=== PATIENT | male | born 1950 | race African-American/Black ===

== ENCOUNTER 2023-04-21 14:48 | Inpatient (IN) | payer OTHER ==
[~2023-04-21 14:48] MED LIST: Iopamidol-370 76% 500 ML MDV (1 ML CHARGE) ONE
[2023-04-21 15:51] LABS: Hemoglobin 10.2 g/dL (12.0-16.0); Mean Corpuscular Hemoglobin 28.9 pg (27.0-31.0); Mean Corpuscular Volume 87.5 fl (78.0-98.0); Mean Platelet Volume 12.8 fL (7.4-10.4); RBC Distribution Width 21.2 % (11.5-14.5); Red Blood Cell (RBC) Count 3.53 mill/uL (4.20-5.40); White Blood Cell (WBC) Count 7.4 10x3/uL (4.8-10.8)
[2023-04-21 15:58] LABS: Delete Auto Diff?? YES; Manual Diff?? YES; Platelet Count 98 10x3/uL (130-400)
[2023-04-21 16:02] LABS: Bacteria/HPF None Seen HPF (None Seen); Bilirubin Negative (Negative); Blood, Urine Trace (Negative); CAUTI Indications for Culture Alt mental st,lethar; Clarity Turbid (Clear); Glucose, Urine (Dipstick) Normal (Negative); Ketone, Urine Negative (Negative); Leukocyte Negative Leu/uL (Negative); Nitrite Negative (Negative); Protein, Urine (Dipstick) 10 mg/dL (Neg-Trace); RBC/HPF 0-3 HPF (0-3); Specific Gravity, Urine 1.014 (1.002-1.036); Squamous Epithelial 0-3 HPF (0-3); Urobilinogen Normal mg/dL (Less than 2); WBC/HPF 0-3 HPF (0-3)
[2023-04-21 16:05] LABS: Urine Culture Reflex No No
[2023-04-21 16:21] LABS: Anisocytosis SLIGHT = 6-15 cells HPF (0-5); Band 11 % (5-11); Burr Cells MODERATE= 6-15 cells HPF (0-1); CellaVision Operator ID LAB.MJL; Lymphocytes 4 % (21-51); Monocytes 12 % (0-10); Neutrophil 72 % (42-75); Nucleated RBC (Manual Ct) 26 % (0); Ovalocytes SLIGHT = 2-5 cells HPF (0-1); Platelet Adequacy Comment Platelets Decreased; Poikilocytosis SLIGHT = 6-15 cells HPF (0-5); Polychromasia MODERATE = 3-4 cells HPF (0-2); Reactive Lymphocytes 1 % (0-10); Total Cell Count 100
[2023-04-21 16:30] LABS: ALT (SGPT) 22 U/L (8-55); AST (SGOT) 105 U/L (5-34); Alkaline Phosphatase 588 U/L (40-110); Anion Gap 26 mmol/L (10-20); BUN (Urea Nitrogen) 94 mg/dL (9.8-20.1); Bilirubin, Total 1.1 mg/dL (0.2-1.2); Calc. Creatinine Clearance 0 mL/min (70-130); Carbon Dioxide 13 mmol/L (23-31); Chloride 101 mmol/L (98-107); Estimated GFR 39; Globulin 2.5 g/dL (2.4-3.5); Glucose 83 mg/dL (83-110); Potassium 5.7 mmol/L (3.5-5.1); Protein, Total 4.5 g/dL (5.8-8.1); Sodium 134 mmol/L (136-145)
[2023-04-21 16:42] LABS: Calcium 6.9 mg/dL (7.8-10.44)
[2023-04-21 17:15] LABS: Lipase 101 U/L (8-78)
[2023-04-21 18:09] LABS: ALT (SGPT) 22 U/L (8-55); AST (SGOT) 93 U/L (5-34); Alkaline Phosphatase 583 U/L (40-110); Anion Gap 24 mmol/L (10-20); BUN (Urea Nitrogen) 94 mg/dL (9.8-20.1); Bilirubin, Total 1.1 mg/dL (0.2-1.2); Calc. Creatinine Clearance 0 mL/min (70-130); Carbon Dioxide 15 mmol/L (23-31); Chloride 101 mmol/L (98-107); Estimated GFR 40; Globulin 2.3 g/dL (2.4-3.5); Glucose 78 mg/dL (83-110); Potassium 5.2 mmol/L (3.5-5.1); Protein, Total 4.3 g/dL (5.8-8.1); Sodium 135 mmol/L (136-145)
[2023-04-21 18:11] LABS: Calcium 6.8 mg/dL (7.8-10.44)
[2023-04-21] MEDS ORDERED: Calcium Gluc 4.6 MEQ/10 ML (100 MG/ML) ONE (18:30)
[2023-04-21] MEDS ORDERED: Glucagon 1 MG/ML KIT IM PRN (19:18)
[2023-04-21] MEDS ORDERED: Dextrose 5% in Water 1,000 ML IV PRN (19:18)
[2023-04-21 19:46] LABS: Actual Bicarbonate (HCO3a) 16.4 mEq/L (22-28); Analyzer IN Cardio ER; Base Excess (BEa) -5.1 mEq/L (-2.0 to +3.0); Calcium, Ionized (arterial) 0.98 mmol/L (1.12-1.30); Carboxyhemoglobin (COHb) 0.3 gm% (0.0-3.0); Hematocrit-ABG 26 % (42.0-52.0); Hemoglobin (Hb) 8.9 g/dL (14.0-18.0); O2 Tension (PaO2), arterial 112.8 mmHg (> 70.0); Potassium - ABG Lab 4.49 mmol/L (3.70-5.30); pH, Arterial 7.526 (7.35-7.45)
[2023-04-21 19:51] LABS: ALV-art Gradient 11.555 mmHg (0-20); CO2 Tension 20.3 mmHg (35.0-45.0); Puncture Site LRA
[2023-04-21] MEDS ORDERED: Ondansetron PF 4 MG/2 ML Vial IVP PRN (19:54)
[2023-04-21] MEDS ORDERED: Ondansetron ODT 4 MG TAB PO PRN (19:54)
[2023-04-21] MEDS ORDERED: Acetaminophen 325 MG TAB PO PRN (19:54)
[2023-04-21] MEDS: Dextrose 50% Abboject 50 ML SYRINGE SLOW IVP PRN (21:20)
[2023-04-21] MEDS: Sodium Chloride 0.9% 1,000 ML IV SCH (21:29)
[2023-04-21] MEDS ORDERED: Piperacillin/Tazobactam 3.375 GM in Sodium Chloride 0.9% 100 ML IVPB SCH (21:30)
[2023-04-21 22:01] LABS: Hemoglobin 8.7 g/dL (14.0-18.0); Mean Corpuscular HGB CONC 33.1 g/dL (32.0-36.0); Mean Corpuscular Hemoglobin 29.3 pg (27.0-31.0); Mean Corpuscular Volume 88.6 fl (78.0-98.0); Mean Platelet Volume 12.7 fL (7.4-10.4); RBC Distribution Width 21.4 % (11.5-14.5); Red Blood Cell (RBC) Count 2.97 mill/uL (4.70-6.10); White Blood Cell (WBC) Count 8.1 10x3/uL (4.8-10.8)
[2023-04-21 22:02] LABS: Platelet Count 81 10x3/uL (130-400)
[2023-04-21] MEDS: Morphine 4 MG/ML VIAL SLOW IVP PRN (22:23)
[2023-04-21 22:42] LABS: Lactic Acid 4.1 mmol/L (0.5-2.2)
[2023-04-21] MEDS ORDERED: Sodium Chloride 0.9% 500 ML IV SCH (23:15)
[2023-04-22 01:47] LABS: Acetaminophen Less than 10 mcg/mL (10.0-30.0); Alcohol Less than 10.0 mg/dL (Less than 10); Lactic Acid 4.8 mmol/L (0.5-2.2); Salicylate Less than 8.0 mg/dL (15.0-30.0)
[2023-04-22 01:51] LABS: Amphetamine Not Detected (NotDetected); Barbiturates Screen Not Detected (NotDetected); Benzodiazepine Screen Not Detected (NotDetected); Cocaine Metabolite Screen Not Detected (NotDetected); Methadone Not Detected (NotDetected); Methamphetamine Not Detected (NotDetected); Opiate Screen Not Detected (NotDetected); Oxycodone Screen Not Detected (NotDetected); Phencyclidine (PCP) Not Detected (NotDetected); THC/Cannabinoid Screen Not Detected (NotDetected); Tricyclic Screen Not Detected (NotDetected)
[2023-04-22] MEDS: Piperacillin/Tazobactam 3.375 GM in Sodium Chloride 0.9% 100 ML IVPB SCH ×3 (02:04→17:58)
[2023-04-22] MEDS ORDERED: Albumin 25% 25 GM/100 ML BOT IVPB SCH (03:15)
[2023-04-22 03:30] LABS: HBCM Index 0.05 S/CO (0-0.79); HBSAg Index 0.75 S/CO (0-0.99); Hep A IgM AB Non-Reactive S/CO (NonReactive); Hep A IgM S/CO 0.19 S/CO (0-0.79); Hep B Surf Ag Non-Reactive S/CO (NonReactive); Hep C IgG Ab Non-Reactive S/CO (NonReactive); Hep C Index 0.06 S/CO (0-0.79); Hepatitis B Core IgM Abs Non-Reactive S/CO (NonReactive)
[2023-04-22 04:08] LABS: #Monocytes 1.5 thou/uL (0.11-0.59); #Neutrophils 5.2 thou/uL (1.40-6.50); %Basophils 0.1 % (0.0-1.0); %Eosinophils 0.2 % (0.0-10.0); %Lymphocytes 19.8 % (21.0-51.0); %Monocytes 16.7 % (0.0-10.0); %Neutrophils 57.9 % (42.0-75.0); Hemoglobin 8.3 g/dL (14.0-18.0); Mean Corpuscular HGB CONC 32.9 g/dL (32.0-36.0); Mean Corpuscular Hemoglobin 28.8 pg (27.0-31.0); Mean Corpuscular Volume 87.5 fl (78.0-98.0); Mean Platelet Volume 12.2 fL (7.4-10.4); RBC Distribution Width 21.2 % (11.5-14.5); Red Blood Cell (RBC) Count 2.88 mill/uL (4.70-6.10)
[2023-04-22 04:14] LABS: Platelet Count 87 10x3/uL (130-400)
[2023-04-22 04:33] LABS: ALT (SGPT) 23 U/L (8-55); AST (SGOT) 97 U/L (5-34); Albumin 1.8 g/dL (3.4-4.8); Alkaline Phosphatase 957 U/L (40-110); Anion Gap 20 mmol/L (10-20); BUN (Urea Nitrogen) 87 mg/dL (8.4-25.7); Bilirubin, Total 1.1 mg/dL (0.2-1.2); Calc. Creatinine Clearance 55 mL/min (70-130); Carbon Dioxide 17 mmol/L (23-31); Chloride 103 mmol/L (98-107); Estimated GFR 50; Globulin 2.3 g/dL (2.4-3.5); Glucose 112 mg/dL (83-110); Iron 169 ug/dL (65-175); Iron 171 ug/dL (65-175); Iron Binding Capacity, Total 176 mcg/dL (261-462); Potassium 4.8 mmol/L (3.5-5.1); Protein, Total 4.1 g/dL (5.8-8.1); Sodium 135 mmol/L (136-145)
[2023-04-22 04:36] LABS: Calcium 6.5 mg/dL (7.8-10.44)
[2023-04-22 04:45] LABS: Iron Binding Capacity, Total 176 mcg/dL (261-462)
[2023-04-22] MEDS ORDERED: Sodium Chloride 0.9% 1,000 ML IV SCH (04:45)
[2023-04-22] MEDS: Sodium Chloride 0.9% 1,000 ML IV SCH ×2 (04:56→09:20)
[2023-04-22] MEDS ORDERED: Sodium Bicarb 50 MEQ/50 ML VIAL IVP SCH (05:00)
[2023-04-22 07:51] LABS: Lactic Acid 4.2 mmol/L (0.5-2.2)
[2023-04-22] MEDS ORDERED: Furosemide 40 MG/4 ML VIAL SLOW IVP SCH (10:30)
[2023-04-22] MEDS: cloNIDine 0.1 MG TAB PO SCH ×3 (10:37→23:43)
[2023-04-22 12:56] LABS: Lactic Acid 3.8 mmol/L (0.5-2.2)
[2023-04-22 16:41] LABS: Lactic Acid 3.8 mmol/L (0.5-2.2)
[2023-04-23] MEDS: Piperacillin/Tazobactam 3.375 GM in Sodium Chloride 0.9% 100 ML IVPB SCH ×3 (02:03→19:42)
[2023-04-23 05:17] LABS: Hemoglobin 7.6 g/dL (14.0-18.0); Mean Corpuscular HGB CONC 31.8 g/dL (32.0-36.0); Mean Corpuscular Hemoglobin 29.1 pg (27.0-31.0); Mean Corpuscular Volume 91.6 fl (78.0-98.0); Mean Platelet Volume 12.5 fL (7.4-10.4); RBC Distribution Width 22.9 % (11.5-14.5); Red Blood Cell (RBC) Count 2.61 mill/uL (4.70-6.10); White Blood Cell (WBC) Count 9.3 10x3/uL (4.8-10.8)
[2023-04-23 05:19] LABS: Delete Auto Diff?? YES; Manual Diff?? YES; Platelet Count 68 10x3/uL (130-400)
[2023-04-23 05:37] LABS: ALT (SGPT) 18 U/L (8-55); AST (SGOT) 88 U/L (5-34); Albumin 2.1 g/dL (3.4-4.8); Alkaline Phosphatase 866 U/L (40-110); Anion Gap 22 mmol/L (10-20); BUN (Urea Nitrogen) 79 mg/dL (8.4-25.7); Calc. Creatinine Clearance 48 mL/min (70-130); Carbon Dioxide 17 mmol/L (23-31); Chloride 108 mmol/L (98-107); Estimated GFR 43; Globulin 2.1 g/dL (2.4-3.5); Glucose 85 mg/dL (83-110); Potassium 4.5 mmol/L (3.5-5.1); Protein, Total 4.2 g/dL (5.8-8.1); Sodium 142 mmol/L (136-145)
[2023-04-23 05:43] LABS: Calcium 6.4 mg/dL (7.8-10.44)
[2023-04-23 06:33] LABS: Anisocytosis MARKED = >30 cells HPF (0-5); Band 1 % (5-11); CellaVision Operator ID LAB.CLH1; Eosinophils 2 % (0-10); Hypochromia SLIGHT = 6-15 cells HPF (0-5); Large Platelets 4.9 % (0-5); Lymphocytes 8 % (21-51); Macrocytosis MARKED = >30 cells HPF (0-5); Monocytes 7 % (0-10); Neutrophil 82 % (42-75); Nucleated RBC (Manual Ct) 30 % (0); Platelet Adequacy Comment Platelets Decreased; Poikilocytosis SLIGHT = 6-15 cells HPF (0-5); Polychromasia SLIGHT = 2-3 cells HPF (0-2); Target Cells SLIGHT = 2-5 cells HPF (0-1); Total Cell Count 102
[2023-04-23] MEDS: cloNIDine 0.1 MG TAB PO SCH ×2 (06:49→07:00)
[2023-04-23] MEDS ORDERED: fentaNYL PF 100 MCG/2 ML SYRINGE ONE (12:26)
[2023-04-23] MEDS ORDERED: Glucagon 1 MG/ML KIT ONE (12:51)
[2023-04-23] MEDS ORDERED: NEOSTIGMINE 3 MG/3 ML SYR 3 MG/3 ML SYRINGE ONE (13:02)
[2023-04-23] MEDS ORDERED: Ondansetron PF 4 MG/2 ML Vial ONE (13:02)
[2023-04-23] MEDS ORDERED: PHENYLEPHRINE-NS 100 MCG/ML 10 ML SYRINGE ONE (13:02)
[2023-04-23] MEDS ORDERED: Glycopyrrolate 0.2 MG/ML 5 ML SYRINGE ONE (13:02)
[2023-04-23] MEDS ORDERED: PROPOFOL 200 MG/20 ML VIAL ONE (13:02)
[2023-04-23] MEDS ORDERED: Dexamethasone 20 MG/5 ML VIAL ONE (13:02)
[2023-04-23] MEDS ORDERED: Rocuronium Bromide 10 MG/ML (10ML VIAL) ONE (13:02)
[2023-04-23] MEDS ORDERED: Calcium Chloride 1 GM/10 ML Abboject SYRINGE ONE ×2 (13:02→17:31)
[2023-04-23] MEDS ORDERED: Lidocaine 1% PF 5 ML VIAL ONE (13:02)
[2023-04-23] MEDS ORDERED: Iopamidol 30 ML ONE (13:17)
[2023-04-23] MEDS ORDERED: Bupivacaine HCl 0.5%/Epinephrine 1:200,000/PF 30 ml Vial ONE (13:17)
[2023-04-23] MEDS ORDERED: CALCIUM GLUC 1 GM/NS 50 ML 1 GM in Premix Bag 1 BAG IVPB SCH (15:30)
[2023-04-23] MEDS ORDERED: Acetaminophen 500 MG TAB PO PRN (15:42)
[2023-04-23] MEDS ORDERED: Acetaminophen 500 MG TAB PO SCH (15:45)
[2023-04-23] MEDS ORDERED: HYDROmorphone 2 MG/ML VIAL SLOW IVP PRN (16:33)
[2023-04-23] MEDS ORDERED: Morphine Sulfate 2 MG/ML SYRINGE SLOW IVP PRN (16:33)
[2023-04-23] MEDS ORDERED: Ondansetron HCl/PF 4 MG/2 ML Vial IVP PRN (16:33)
[2023-04-23] MEDS ORDERED: PACU-Morphine 4MG/ML VIAL SLOW IVP PRN (16:33)
[2023-04-23] MEDS ORDERED: Promethazine HCl 25 MG/ML VIAL IM PRN (16:33)
[2023-04-23] MEDS ORDERED: Dextrose 50% Abboject 50 ML SYRINGE ONE (16:36)
[2023-04-23] MEDS ORDERED: Albumin 5% 0 ML ONE (17:27)
[2023-04-23] MEDS ORDERED: Albumin 5% 500 ML ONE (17:43)
[2023-04-23] MEDS ORDERED: Furosemide 40 MG/4 ML VIAL ONE (17:59)
[2023-04-23] MEDS ORDERED: Furosemide 20 MG/2 ML VIAL SLOW IVP SCH (18:15)
[2023-04-23] MEDS: Morphine 4 MG/ML VIAL SLOW IVP PRN (19:42)
[2023-04-23 20:05] LABS: Hemoglobin 8.8 g/dL (14.0-18.0); Mean Corpuscular HGB CONC 32.8 g/dL (32.0-36.0); Mean Corpuscular Hemoglobin 29.6 pg (27.0-31.0); Mean Corpuscular Volume 90.2 fl (78.0-98.0); Mean Platelet Volume 11.5 fL (7.4-10.4); RBC Distribution Width 20.3 % (11.5-14.5); Red Blood Cell (RBC) Count 2.97 mill/uL (4.70-6.10); White Blood Cell (WBC) Count 12.9 10x3/uL (4.8-10.8)
[2023-04-23 20:07] LABS: Delete Auto Diff?? YES; Manual Diff?? YES
[2023-04-23 20:08] LABS: Platelet Count 58 10x3/uL (130-400)
[2023-04-23 20:16] LABS: Fibrinogen 228 mg/dL (253-463)
[2023-04-23 20:17] LABS: INR-International Normal Ratio 1.7; PTT 31.7 sec (22.9-36.1); Prothrombin Time 20.9 sec (12.0-14.7)
[2023-04-23 20:25] LABS: D-Dimer Test 5.69 *mcg/mL (0.27-0.43)
[2023-04-23 20:39] LABS: Anisocytosis SLIGHT = 6-15 cells HPF (0-5); Band 13 % (5-11); Burr Cells MODERATE= 6-15 cells HPF (0-1); CellaVision Operator ID LAB.MJL; Lymphocytes 10 % (21-51); Metamyelocyte 5 % (0-0); Monocytes 3 % (0-10); Neutrophil 65 % (42-75); Nucleated RBC (Manual Ct) 28 % (0); Ovalocytes SLIGHT = 2-5 cells HPF (0-1); Platelet Adequacy Comment Platelets Decreased; Poikilocytosis MODERATE=16-30 cells HPF (0-5); Polychromasia MODERATE = 3-4 cells HPF (0-2); Reactive Lymphocytes 2 % (0-10); Total Cell Count 97
[2023-04-23] MEDS ORDERED: Allopurinol 100 MG TAB PO SCH (21:30)
[2023-04-23] MEDS: Sodium Chloride 0.9% 1,000 ML IV SCH (22:04)
[2023-04-24] MEDS: Piperacillin/Tazobactam 3.375 GM in Sodium Chloride 0.9% 100 ML IVPB SCH ×2 (02:20→09:52)
[2023-04-24] MEDS: traMADol HCl 50 MG TAB PO PRN ×4 (03:58→21:02)
[2023-04-24 05:19] LABS: #Monocytes 1.1 thou/uL (0.11-0.59); #Neutrophils 7.7 thou/uL (1.40-6.50); %Basophils 0.3 % (0.0-1.0); %Eosinophils 0.1 % (0.0-10.0); %Lymphocytes 17.6 % (21.0-51.0); %Monocytes 8.9 % (0.0-10.0); Hemoglobin 8.2 g/dL (14.0-18.0); Mean Corpuscular HGB CONC 32.7 g/dL (32.0-36.0); Mean Corpuscular Hemoglobin 28.9 pg (27.0-31.0); Mean Corpuscular Volume 88.4 fl (78.0-98.0); Mean Platelet Volume 12.7 fL (7.4-10.4); RBC Distribution Width 21.1 % (11.5-14.5); Red Blood Cell (RBC) Count 2.84 mill/uL (4.70-6.10); White Blood Cell (WBC) Count 11.8 10x3/uL (4.8-10.8)
[2023-04-24 05:25] LABS: Manual Diff?? YES; Platelet Count 40 10x3/uL (130-400)
[2023-04-24 05:46] LABS: ALT (SGPT) 209 U/L (8-55); AST (SGOT) 1353 U/L (5-34); Albumin 2.1 g/dL (3.4-4.8); Alkaline Phosphatase 1133 U/L (40-110); Anion Gap 20 mmol/L (10-20); BUN (Urea Nitrogen) 80 mg/dL (8.4-25.7); Bilirubin, Direct 1.6 mg/dL (0.1-0.3); Bilirubin, Total 1.8 mg/dL (0.2-1.2); Calc. Creatinine Clearance 48 mL/min (70-130); Carbon Dioxide 17 mmol/L (23-31); Chloride 115 mmol/L (98-107); Estimated GFR 43; Globulin 1.8 g/dL (2.4-3.5); Glucose 98 mg/dL (83-110); Protein, Total 3.9 g/dL (5.8-8.1); Sodium 148 mmol/L (136-145)
[2023-04-24 05:52] LABS: Calcium 6.8 mg/dL (7.8-10.44)
[2023-04-24 06:05] LABS: Anisocytosis SLIGHT = 6-15 cells HPF (0-5); Band 8 % (5-11); Basophilic Stippling SLIGHT = 1-2 cells HPF (None Seen); Burr Cells SLIGHT = 2-5 cells HPF (0-1); Lymphocytes 12 % (21-51); Monocytes 4 % (0-10); Neutrophil 75 % (42-75); Nucleated RBC (Manual Ct) 14 % (0); Ovalocytes SLIGHT = 2-5 cells HPF (0-1); Platelet Adequacy Comment Platelets Decreased; Poikilocytosis SLIGHT = 6-15 cells HPF (0-5); Polychromasia SLIGHT = 2-3 cells HPF (0-2); Reactive Lymphocytes 1 % (0-10); Target Cells SLIGHT = 2-5 cells HPF (0-1); Tear Drops SLIGHT = 2-5 cells HPF (0-1); Total Cell Count 100
[2023-04-24 06:13] LABS: Uric Acid 21.9 mg/dL (3.5-7.2)
[2023-04-24] MEDS ORDERED: Allopurinol 100 MG TAB PO SCH (09:00)
[2023-04-24] MEDS: Sodium Chloride 0.9% 1,000 ML IV SCH (10:47)
[2023-04-24] MEDS: metroNIDAZOLE 500 MG in Premix Bag 1 BAG IVPB SCH ×2 (14:51→21:03)
[2023-04-24] MEDS: cefTRIAXone\\ROCEPHIN 1 GM in Sodium Chloride 0.9% 100 ML IVPB SCH (15:03)
[2023-04-24] MEDS: Sodium Bicarbonate 50 MEQ in Sodium Chloride 0.45% 1,000 ML IV SCH (16:21)
[2023-04-24] MEDS: Allopurinol 100 MG TAB PO SCH (21:03)
[2023-04-24] MEDS ORDERED: Electrolyte Replacement Protocol 1 EACH FS SCH (23:00)
[2023-04-25 03:31] LABS: Hemoglobin 8.3 g/dL (14.0-18.0); Mean Corpuscular HGB CONC 30.5 g/dL (32.0-36.0); Mean Corpuscular Hemoglobin 29.3 pg (27.0-31.0); RBC Distribution Width 23.2 % (11.5-14.5); Red Blood Cell (RBC) Count 2.83 mill/uL (4.70-6.10); White Blood Cell (WBC) Count 13.6 10x3/uL (4.8-10.8)
[2023-04-25 03:46] LABS: Platelet Count 37 10x3/uL (130-400)
[2023-04-25 03:47] LABS: Delete Auto Diff?? YES; Manual Diff?? YES
[2023-04-25 04:00] LABS: ALT (SGPT) 182 U/L (8-55); AST (SGOT) 888 U/L (5-34); Albumin 1.8 g/dL (3.4-4.8); Alkaline Phosphatase 1022 U/L (40-110); Bilirubin, Direct 0.8 mg/dL (0.1-0.3); Bilirubin, Total 1.1 mg/dL (0.2-1.2); Lipase 57 U/L (8-78); Protein, Total 3.9 g/dL (5.8-8.1); Uric Acid 4.3 mg/dL (3.5-7.2)
[2023-04-25 04:01] LABS: ALT (SGPT) 190 U/L (8-55); AST (SGOT) 939 U/L (5-34); Alkaline Phosphatase 1069 U/L (40-110); Anion Gap 24 mmol/L (10-20); BUN (Urea Nitrogen) 74 mg/dL (8.4-25.7); Bilirubin, Total 1.2 mg/dL (0.2-1.2); Calc. Creatinine Clearance 53 mL/min (70-130); Carbon Dioxide 13 mmol/L (23-31); Chloride 117 mmol/L (98-107); Estimated GFR 48; Globulin 1.9 g/dL (2.4-3.5); Glucose 72 mg/dL (83-110); Potassium 3.7 mmol/L (3.5-5.1); Protein, Total 3.9 g/dL (5.8-8.1); Sodium 150 mmol/L (136-145)
[2023-04-25 04:04] LABS: Calcium 6.4 mg/dL (7.8-10.44)
[2023-04-25 04:11] LABS: Anisocytosis SLIGHT = 6-15 cells HPF (0-5); Band 24 % (5-11); CellaVision Operator ID LAB.CLH1; Lymphocytes 11 % (21-51); Monocytes 4 % (0-10); Neutrophil 61 % (42-75); Nucleated RBC (Manual Ct) 17 % (0); Platelet Adequacy Comment Platelets Decreased; Poikilocytosis SLIGHT = 6-15 cells HPF (0-5); Polychromasia SLIGHT = 2-3 cells HPF (0-2); Target Cells SLIGHT = 2-5 cells HPF (0-1); Total Cell Count 99
[2023-04-25 04:14] LABS: Mean Corpuscular Volume 96.1 fl (78.0-98.0)
[2023-04-25] MEDS ORDERED: Calcium Chloride 13.6 MEQ in Sodium Chloride 0.9% 100 ML IVPB SCH (04:15)
[2023-04-25] MEDS: Sodium Bicarbonate 50 MEQ in Sodium Chloride 0.45% 1,000 ML IV SCH (04:40)
[2023-04-25] MEDS: metroNIDAZOLE 500 MG in Premix Bag 1 BAG IVPB SCH ×3 (05:48→21:40)
[2023-04-25 07:26] LABS: Magnesium 1.9 mg/dL (1.6-2.6)
[2023-04-25] MEDS ORDERED: Magnesium 2 GM/50 ML(in water) 2 GM in Premix Bag 1 BAG IVPB SCH (08:00)
[2023-04-25] MEDS ORDERED: Sodium Bicarbonate 70 MEQ in Dextrose 5% in Water 1,000 ML IV SCH (09:15)
[2023-04-25] MEDS: Dextrose 50% Abboject 50 ML SYRINGE SLOW IVP PRN (10:59)
[2023-04-25] MEDS ORDERED: Metoprolol Tartrate 5 MG/5 ML VIAL IVP SCH (11:25)
[2023-04-25] MEDS ORDERED: Albumin 25% 25 GM/100 ML BOT IVPB SCH (11:30)
[2023-04-25] MEDS: Acetaminophen 650 MG Suppository PR PRN (12:03)
[2023-04-25] MEDS: cefTRIAXone\\ROCEPHIN 1 GM in Sodium Chloride 0.9% 100 ML IVPB SCH (13:40)
[2023-04-25] MEDS ORDERED: SODIUM BICARBONATE IV SCH (18:45)
[2023-04-25] MEDS ORDERED: WATER IV SCH (18:45)
[2023-04-25] MEDS ORDERED: DEXTROSE 10% IV SCH (18:45)
[2023-04-25] MEDS: Allopurinol 100 MG TAB PO SCH (20:00)
[2023-04-25 22:52] LABS: Bilirubin Negative (Negative); Blood, Urine Large (Negative); Glucose, Urine (Dipstick) Negative (Negative); Ketone, Urine Negative (Negative); Leukocyte Trace (Negative); Nitrite Negative (Negative); Protein, Urine (Dipstick) 100 mg/dL (Neg-Trace); Specific Gravity, Urine 1.025 (1.005-1.030); Urobilinogen 0.2 mg/dL (Less than 2)
[2023-04-25 22:54] LABS: Clarity Cloudy (Clear); RBC/HPF Greater than 50 HPF (0-3)
[2023-04-25 22:55] LABS: Bacteria/HPF 2+ HPF (None Seen); CAUTI Indications for Culture Urological Procedure; Squamous Epithelial None Seen HPF (0-3)
[2023-04-25 22:56] LABS: Other Microscopic Description Less than 2 mL rec'd; Urine Culture Reflex Yes Yes
[2023-04-25 23:07] LABS: Glucose 84 mg/dL (83-110)
[2023-04-26] MEDS: Acetaminophen 650 MG Suppository PR PRN (00:32)
[2023-04-26] MEDS ORDERED: Sodium Bicarb 50 MEQ/50 ML VIAL IVP SCH ×2 (01:00→08:45)
[2023-04-26] MEDS: Dextrose 5% in Water 250 ML IVPB PRN ×2 (01:45→04:53)
[2023-04-26 04:09] LABS: ALT (SGPT) 179 U/L (8-55); AST (SGOT) 806 U/L (5-34); Alkaline Phosphatase 875 U/L (40-110); BUN (Urea Nitrogen) 72 mg/dL (8.4-25.7); Bilirubin, Total 1.3 mg/dL (0.2-1.2); Calc. Creatinine Clearance 55 mL/min (70-130); Calcium 7.2 mg/dL (7.8-10.44); Chloride 118 mmol/L (98-107); Estimated GFR 51; Glucose 57 mg/dL (83-110); Potassium 3.9 mmol/L (3.5-5.1)
[2023-04-26 04:11] LABS: Carbon Dioxide Less than 8 mmol/L (23-31); Sodium 153 mmol/L (136-145)
[2023-04-26 04:12] LABS: Lactic Acid 17.2 mmol/L (0.5-2.2)
[2023-04-26] MEDS: WATER IV SCH ×2 (04:32→13:31)
[2023-04-26] MEDS: SODIUM BICARBONATE IV SCH ×2 (04:32→13:31)
[2023-04-26] MEDS: DEXTROSE 10% IV SCH ×2 (04:32→13:31)
[2023-04-26 04:43] LABS: Mean Corpuscular HGB CONC 31.1 g/dL (32.0-36.0); Mean Corpuscular Hemoglobin 30.2 pg (27.0-31.0); RBC Distribution Width 24.2 % (11.5-14.5); Red Blood Cell (RBC) Count 2.32 mill/uL (4.70-6.10); White Blood Cell (WBC) Count 16.1 10x3/uL (4.8-10.8)
[2023-04-26 04:56] LABS: Platelet Count 35 10x3/uL (130-400)
[2023-04-26] MEDS: metroNIDAZOLE 500 MG in Premix Bag 1 BAG IVPB SCH ×3 (04:56→21:12)
[2023-04-26 04:57] LABS: Delete Auto Diff?? YES; Manual Diff?? YES
[2023-04-26 05:04] LABS: ALT (SGPT) 159 U/L (8-55); AST (SGOT) 707 U/L (5-34); Albumin 1.9 g/dL (3.4-4.8); Alkaline Phosphatase 775 U/L (40-110); BUN (Urea Nitrogen) 70 mg/dL (8.4-25.7); Bilirubin, Direct 0.6 mg/dL (0.1-0.3); Calc. Creatinine Clearance 59 mL/min (70-130); Chloride 117 mmol/L (98-107); Estimated GFR 55; Glucose 58 mg/dL (83-110); Potassium 3.6 mmol/L (3.5-5.1); Protein, Total 3.8 g/dL (5.8-8.1); Uric Acid Less than 2.0 mg/dL (3.5-7.2)
[2023-04-26 05:06] LABS: Hemoglobin 7.2 g/dL (14.0-18.0); Mean Corpuscular Hemoglobin 29.1 pg (27.0-31.0); Mean Corpuscular Volume 100.4 fl (78.0-98.0); Platelet Count 38 10x3/uL (130-400); Red Blood Cell (RBC) Count 2.47 mill/uL (4.70-6.10); White Blood Cell (WBC) Count 18.3 10x3/uL (4.8-10.8)
[2023-04-26 05:07] LABS: Delete Auto Diff?? YES; Manual Diff?? YES
[2023-04-26 05:25] LABS: Carbon Dioxide Less than 8 mmol/L (23-31); Sodium 156 mmol/L (136-145)
[2023-04-26] MEDS ORDERED: Calcium Gluc 4.6 MEQ/10 ML (100 MG/ML) SLOW IVP SCH (05:30)
[2023-04-26] MEDS ORDERED: Hydrocortisone Sod Succ/PF 100 mg/2 ml Vial IVP SCH (06:00)
[2023-04-26 06:24] LABS: Lactic Acid 22.5 mmol/L (0.5-2.2)
[2023-04-26] MEDS ORDERED: Propofol 1,000 MG/100 ML VIAL IV ONE (06:46)
[2023-04-26] MEDS ORDERED: Morphine 2 MG/ML VIAL SLOW IVP PRN (07:00)
[2023-04-26] MEDS ORDERED: Propofol BOLUS 1,000 MG/100 ML VIAL IV PRN (07:00)
[2023-04-26] MEDS ORDERED: DISCONTINUE PREVIOUS NARCOTIC PAIN MEDICATIONS AND BENZODIAZEPINES FS SCH (07:00)
[2023-04-26] MEDS ORDERED: Ventilator Sedation Protocol 1 EACH FS SCH (07:00)
[2023-04-26] MEDS ORDERED: Fentanyl BOLUS 250 ML IVPB PRN (07:00)
[2023-04-26 07:12] LABS: Anisocytosis SLIGHT = 6-15 cells HPF (0-5); Band 1 % (5-11); Burr Cells SLIGHT = 2-5 cells HPF (0-1); Hypochromia SLIGHT = 6-15 cells HPF (0-5); Large Platelets 0.9 % (0-5); Lymphocytes 16 % (21-51); Macrocytosis SLIGHT = 6-15 cells HPF (0-5); Metamyelocyte 1 % (0-0); Monocytes 2 % (0-10); Neutrophil 79 % (42-75); Nucleated RBC (Manual Ct) 9 % (0); Ovalocytes SLIGHT = 2-5 cells HPF (0-1); Platelet Adequacy Comment Platelets Decreased; Polychromasia SLIGHT = 2-3 cells HPF (0-2); Reactive Lymphocytes 1 % (0-10); Total Cell Count 113
[2023-04-26 07:14] LABS: CellaVision Operator ID LAB.GE; Hypochromia SLIGHT = 6-15 cells HPF (0-5); Large Platelets 2.7 % (0-5); Neutrophil 73 % (42-75); Nucleated RBC (Manual Ct) 23 % (0); Platelet Adequacy Comment Significant decrease; Total Cell Count 113
[2023-04-26] MEDS: Lorazepam 2 MG/ML VIAL SLOW IVP PRN (07:25)
[2023-04-26 07:35] LABS: Band 11 % (5-11); Eosinophils 1 % (0-10); Lymphocytes 8 % (21-51)
[2023-04-26 07:36] LABS: Metamyelocyte 6 % (0-0); Monocytes 6 % (0-10); Myelocyte 1 % (0-0)
[2023-04-26 07:43] LABS: Reflex for Review?? YES
[2023-04-26 07:43] LABS: QuantiFERON-TB Gold Plus Negative (Negative)
[2023-04-26 07:44] LABS: Polychromasia MODERATE = 3-4 cells HPF (0-2)
[2023-04-26] MEDS: Dextrose 50% Abboject 50 ML SYRINGE SLOW IVP PRN (07:48)
[2023-04-26] MEDS ORDERED: Magnesium 2 GM/50 ML(in water) 2 GM in Premix Bag 1 BAG IVPB SCH (08:00)
[2023-04-26 08:21] LABS: Base Excess (BEa) -19.5 mEq/L (-2.0 to +3.0); Calcium, Ionized (arterial) 0.98 mmol/L (1.12-1.30); Carboxyhemoglobin (COHb) 0.3 gm% (0.0-3.0); Hematocrit-ABG 26 % (42.0-52.0); Hemoglobin (Hb) 8.9 g/dL (14.0-18.0); O2 Tension (PaO2), arterial 162.2 mmHg (> 70.0); Potassium - ABG Lab 3.58 mmol/L (3.70-5.30)
[2023-04-26 08:25] LABS: CO2 Tension 18.5 mmHg (35.0-45.0); pH, Arterial 7.187 (7.35-7.45)
[2023-04-26 08:26] LABS: Actual Bicarbonate (HCO3a) 6.9 mEq/L (22-28); Puncture Site LBA
[2023-04-26 08:27] LABS: ALV-art Gradient 99.875 mmHg (0-20)
[2023-04-26] MEDS: Albumin 25% 25 GM/100 ML BOT IVPB SCH ×3 (08:44→20:41)
[2023-04-26] MEDS: Hydrocortisone Sod Succ/PF 100 mg/2 ml Vial IVP SCH ×3 (08:57→21:49)
[2023-04-26] MEDS ORDERED: Amino Acids 4.25 %/Dextrose 5% 1,000 ML IV SCH (09:00)
[2023-04-26] MEDS ORDERED: Iopamidol-370 76% 500 ML MDV (1 ML CHARGE) ONE (09:11)
[2023-04-26 11:08] LABS: Analyzer IN Cardio OR; Base Excess (BEa) -11.7 mEq/L (-2.0 to +3.0); Calcium, Ionized (arterial) 0.93 mmol/L (1.12-1.30); Carboxyhemoglobin (COHb) 0.7 gm% (0.0-3.0); Hematocrit-ABG 29 % (42.0-52.0); O2 Tension (PaO2), arterial 132.7 mmHg (> 70.0); Potassium - ABG Lab 4.82 mmol/L (3.70-5.30); pH, Arterial 7.338 (7.35-7.45)
[2023-04-26 11:11] LABS: Puncture Site Arterial Line
[2023-04-26 13:01] LABS: INR-International Normal Ratio 2.1; PTT 33.9 sec (22.9-36.1); Prothrombin Time 24.2 sec (12.0-14.7)
[2023-04-26] MEDS ORDERED: Ibuprofen 200 MG TAB PO PRN (13:05)
[2023-04-26] MEDS: TRACE ELEMENT IV SCH (13:27)
[2023-04-26] MEDS: MULTIVITAMINS IV SCH (13:27)
[2023-04-26] MEDS: cefTRIAXone\\ROCEPHIN 1 GM in Sodium Chloride 0.9% 100 ML IVPB SCH (13:27)
[2023-04-26] MEDS: SODIUM ACETATE IV SCH (13:27)
[2023-04-26] MEDS: [UNRECOGNIZED DRUG - OTHER] IV SCH (13:27)
[2023-04-26] MEDS: Propofol 1,000 MG/100 ML VIAL IV PRN ×2 (13:39→22:00)
[2023-04-26 17:44] LABS: Anion Gap 34 mmol/L (10-20); BUN (Urea Nitrogen) 75 mg/dL (8.4-25.7); Calc. Creatinine Clearance 56 mL/min (70-130); Calcium 7.1 mg/dL (7.8-10.44); Carbon Dioxide 11 mmol/L (23-31); Chloride 113 mmol/L (98-107); Estimated GFR 51; Glucose 239 mg/dL (83-110); Potassium 3.7 mmol/L (3.5-5.1)
[2023-04-26 17:48] LABS: Sodium 154 mmol/L (136-145)
[2023-04-26] MEDS: Allopurinol 100 MG TAB PO SCH (20:42)
[2023-04-26] MEDS: Calcium Carbonate 600 MG + Vit D TAB PO SCH (20:43)
[2023-04-26] MEDS: HumaLOG 300 UNITS/3 ML VIAL SC PRN ×2 (21:49→23:59)
[2023-04-26 22:36] LABS: Anion Gap 23 mmol/L (10-20); BUN (Urea Nitrogen) 79 mg/dL (8.4-25.7); Calc. Creatinine Clearance 57 mL/min (70-130); Carbon Dioxide 19 mmol/L (23-31); Chloride 111 mmol/L (98-107); Potassium 3.2 mmol/L (3.5-5.1); Sodium 150 mmol/L (136-145)
[2023-04-26 22:37] LABS: Calcium 7.1 mg/dL (7.8-10.44); Estimated GFR 52; Glucose 245 mg/dL (83-110)
[2023-04-26] MEDS ORDERED: Electrolyte Replacement Protocol 1 EACH FS SCH (23:00)
[2023-04-26 23:22] LABS: Lactic Acid Greater than 13.4 mmol/L (0.5-2.2)
[2023-04-26] MEDS ORDERED: Potassium Chloride 40 MEQ in Premix Bag 1 BAG IVPB SCH (23:59)
[2023-04-27] MEDS: HumaLOG 300 UNITS/3 ML VIAL SC PRN ×2 (02:48→05:36)
[2023-04-27] MEDS: Albumin 25% 25 GM/100 ML BOT IVPB SCH ×4 (02:51→17:44)
[2023-04-27 03:56] LABS: Lactic Acid 12.7 mmol/L (0.5-2.2)
[2023-04-27 04:11] LABS: ALT (SGPT) 108 U/L (8-55); AST (SGOT) 364 U/L (5-34); Albumin 2.7 g/dL (3.4-4.8); Alkaline Phosphatase 556 U/L (40-110); Anion Gap 25 mmol/L (10-20); BUN (Urea Nitrogen) 74 mg/dL (8.4-25.7); Bilirubin, Total 1.4 mg/dL (0.2-1.2); Calc. Creatinine Clearance 61 mL/min (70-130); Calcium 7.7 mg/dL (7.8-10.44); Carbon Dioxide 17 mmol/L (23-31); Chloride 112 mmol/L (98-107); Estimated GFR 56; Globulin 1.5 g/dL (2.4-3.5); Glucose 198 mg/dL (83-110); Phosphorus 1.6 mg/dL (2.3-4.7); Potassium 3.3 mmol/L (3.5-5.1); Protein, Total 4.2 g/dL (5.8-8.1); Uric Acid 2.2 mg/dL (3.5-7.2)
[2023-04-27 04:12] LABS: Sodium 151 mmol/L (136-145)
[2023-04-27] MEDS: Hydrocortisone Sod Succ/PF 100 mg/2 ml Vial IVP SCH ×4 (04:41→20:21)
[2023-04-27] MEDS: Propofol 1,000 MG/100 ML VIAL IV PRN ×3 (04:48→21:55)
[2023-04-27] MEDS: metroNIDAZOLE 500 MG in Premix Bag 1 BAG IVPB SCH ×3 (04:56→21:55)
[2023-04-27] MEDS ORDERED: Potassium Chloride 20 MEQ in Premix Bag 1 BAG IVPB SCH (05:00)
[2023-04-27] MEDS ORDERED: Magnesium 2 GM/50 ML(in water) 2 GM in Premix Bag 1 BAG IVPB SCH (05:00)
[2023-04-27] MEDS ORDERED: Potassium Phosphate 15 MMOL in Sodium Chloride 0.9% 100 ML IVPB SCH (06:00)
[2023-04-27 07:13] LABS: Actual Bicarbonate (HCO3a) 19.6 mEq/L (22-28); Base Excess (BEa) -4.5 mEq/L (-2.0 to +3.0); CO2 Tension 31.4 mmHg (35.0-45.0); Calcium, Ionized (arterial) 0.98 mmol/L (1.12-1.30); Carboxyhemoglobin (COHb) 1.3 gm% (0.0-3.0); Hematocrit-ABG 20 % (42.0-52.0); Hemoglobin (Hb) 6.7 g/dL (14.0-18.0); Potassium - ABG Lab 3.06 mmol/L (3.70-5.30); pH, Arterial 7.414 (7.35-7.45)
[2023-04-27 07:15] LABS: Puncture Site RRA
[2023-04-27] MEDS ORDERED: Fentanyl CADD 100 ML ONE (07:46)
[2023-04-27] MEDS: Cholecalciferol 1,000 UNITS (25 MCG) TAB PO SCH (09:27)
[2023-04-27] MEDS: Calcium Carbonate 600 MG + Vit D TAB PO SCH ×2 (09:27→20:10)
[2023-04-27] MEDS: Sodium Bicarbonate Tab 325 MG TAB PER TUBE SCH ×3 (09:53→20:10)
[2023-04-27] MEDS ORDERED: Metolazone 5 MG TAB PER TUBE SCH (10:00)
[2023-04-27] MEDS: cefTRIAXone\\ROCEPHIN 1 GM in Sodium Chloride 0.9% 100 ML IVPB SCH (13:45)
[2023-04-27] MEDS ORDERED: Bisacodyl 10 MG SUPP PR PRN (14:04)
[2023-04-27] MEDS ORDERED: Polyethylene Glycol 3350 17 GM Packet PO SCH (14:15)
[2023-04-27 14:44] LABS: Platelet Count 17 10x3/uL (130-400)
[2023-04-27] MEDS ORDERED: SODIUM CHLORIDE 0.9% IVPB SCH (14:45)
[2023-04-27] MEDS ORDERED: RITUXIMAB ABBS IVPB SCH (14:45)
[2023-04-27 14:49] LABS: Fibrinogen 308 mg/dL (253-463); INR-International Normal Ratio 1.4; PTT 31.7 sec (22.9-36.1); Prothrombin Time 17.6 sec (12.0-14.7)
[2023-04-27 14:50] LABS: D-Dimer Test 2.99 *mcg/mL (0.27-0.43)
[2023-04-27 16:44] LABS: Anion Gap 27 mmol/L (10-20); BUN (Urea Nitrogen) 72 mg/dL (8.4-25.7); Calc. Creatinine Clearance 70 mL/min (70-130); Calcium 7.8 mg/dL (7.8-10.44); Carbon Dioxide 16 mmol/L (23-31); Chloride 112 mmol/L (98-107); Estimated GFR 64; Glucose 149 mg/dL (83-110); Potassium 3.3 mmol/L (3.5-5.1)
[2023-04-27] MEDS: SODIUM ACETATE IV SCH (16:52)
[2023-04-27] MEDS: [UNRECOGNIZED DRUG - OTHER] IV SCH (16:52)
[2023-04-27] MEDS: TRACE ELEMENT IV SCH (16:52)
[2023-04-27] MEDS: MULTIVITAMINS IV SCH (16:52)
[2023-04-27 17:00] LABS: Sodium 152 mmol/L (136-145)
[2023-04-27] MEDS ORDERED: Potassium Phosphate 30 MMOL in Sodium Chloride 0.9% 250 ML 250 ML IVPB SCH (17:30)
[2023-04-27] MEDS: Allopurinol 100 MG TAB PO SCH (20:10)
[2023-04-28] MEDS: Lorazepam 2 MG/ML VIAL SLOW IVP PRN (00:53)
[2023-04-28] MEDS: Propofol 1,000 MG/100 ML VIAL IV PRN ×4 (03:30→20:55)
[2023-04-28] MEDS: Hydrocortisone Sod Succ/PF 100 mg/2 ml Vial IVP SCH ×4 (03:30→21:09)
[2023-04-28 04:45] LABS: Fibrinogen 279 mg/dL (253-463); INR-International Normal Ratio 1.5; PTT 30.7 sec (22.9-36.1); Prothrombin Time 18.8 sec (12.0-14.7)
[2023-04-28 04:46] LABS: ALT (SGPT) 86 U/L (8-55); AST (SGOT) 328 U/L (5-34); Albumin 3.1 g/dL (3.4-4.8); Alkaline Phosphatase 961 U/L (40-110); Anion Gap 30 mmol/L (10-20); BUN (Urea Nitrogen) 72 mg/dL (8.4-25.7); Bilirubin, Total 3.8 mg/dL (0.2-1.2); Calc. Creatinine Clearance 68 mL/min (70-130); Calcium 8.2 mg/dL (7.8-10.44); Carbon Dioxide 11 mmol/L (23-31); Chloride 108 mmol/L (98-107); D-Dimer Test 3.71 *mcg/mL (0.27-0.43); Estimated GFR 57; Globulin 1.6 g/dL (2.4-3.5); Glucose 136 mg/dL (83-110); Potassium 3.3 mmol/L (3.5-5.1); Protein, Total 4.7 g/dL (5.8-8.1); Sodium 146 mmol/L (136-145); Uric Acid Less than 2.0 mg/dL (3.5-7.2)
[2023-04-28 04:57] LABS: Platelet Count 23 10x3/uL (130-400)
[2023-04-28] MEDS: metroNIDAZOLE 500 MG in Premix Bag 1 BAG IVPB SCH (05:11)
[2023-04-28] MEDS ORDERED: PALONOSETRON HCL 0.05 MG/ML 5 ML VIAL IVP SCH (06:00)
[2023-04-28] MEDS ORDERED: diphenhydrAMINE 50 MG in Sodium Chloride 0.9% 50 ML IVPB SCH (06:00)
[2023-04-28] MEDS ORDERED: Dexamethasone 20 MG in Sodium Chloride 0.9% 50 ML IVPB SCH (06:00)
[2023-04-28] MEDS ORDERED: Acetaminophen 500 MG TAB PO SCH (06:00)
[2023-04-28] MEDS ORDERED: CYCLOPHOSPHAMIDE IVPB SCH ×2 (06:00→08:15)
[2023-04-28] MEDS ORDERED: SODIUM CHLORIDE 0.9% IVPB SCH ×2 (06:00→08:15)
[2023-04-28 06:59] LABS: Hemoglobin 8.2 g/dL (14.0-18.0); Mean Corpuscular Hemoglobin 31.2 pg (27.0-31.0); Mean Corpuscular Volume 97.3 fl (78.0-98.0); RBC Distribution Width 22.6 % (11.5-14.5); Red Blood Cell (RBC) Count 2.63 mill/uL (4.70-6.10); White Blood Cell (WBC) Count 15.6 10x3/uL (4.8-10.8)
[2023-04-28] MEDS ORDERED: Fentanyl CADD 100 ML ONE (07:08)
[2023-04-28 07:11] LABS: Platelet Count 20 10x3/uL (130-400)
[2023-04-28 07:12] LABS: Delete Auto Diff?? YES; Manual Diff?? YES
[2023-04-28] MEDS: Fentanyl CADD 100 ML IV SCH (07:12)
[2023-04-28 07:35] LABS: Base Excess (BEa) -15.2 mEq/L (-2.0 to +3.0); CO2 Tension 28.4 mmHg (35.0-45.0); Calcium, Ionized (arterial) 1.05 mmol/L (1.12-1.30); Carboxyhemoglobin (COHb) 0.4 gm% (0.0-3.0); Hematocrit-ABG 24 % (42.0-52.0); O2 Tension (PaO2), arterial 145.8 mmHg (> 70.0); Potassium - ABG Lab 3.12 mmol/L (3.70-5.30); pH, Arterial 7.215 (7.35-7.45)
[2023-04-28 07:38] LABS: Actual Bicarbonate (HCO3a) 11.2 mEq/L (22-28); Puncture Site RRA
[2023-04-28 07:43] LABS: Magnesium 1.8 mg/dL (1.6-2.6)
[2023-04-28] MEDS ORDERED: Dexamethasone Sod Phosphate 20 MG in Sodium Chloride 0.9% 50 ML IVPB SCH (07:45)
[2023-04-28] MEDS ORDERED: Potassium Chloride 40 MEQ in Premix Bag 1 BAG IVPB SCH (08:00)
[2023-04-28] MEDS ORDERED: VANCOMYCIN IVPB PRN (08:20)
[2023-04-28 08:23] LABS: Anisocytosis MODERATE=16-30 cells HPF (0-5); Band 3 % (5-11); Burr Cells SLIGHT = 2-5 cells HPF (0-1); CellaVision Operator ID LAB.GE; Eosinophils 1 % (0-10); Large Platelets 3.3 % (0-5); Lymphocytes 8 % (21-51); Metamyelocyte 7 % (0-0); Monocytes 2 % (0-10); Myelocyte 3 % (0-0); Neutrophil 76 % (42-75); Nucleated RBC (Manual Ct) 34 % (0); Platelet Adequacy Comment Significant decrease; Polychromasia MODERATE = 3-4 cells HPF (0-2); Total Cell Count 91
[2023-04-28] MEDS ORDERED: Magnesium 2 GM/50 ML(in water) 2 GM in Premix Bag 1 BAG IVPB SCH (08:30)
[2023-04-28] MEDS ORDERED: Potassium Phosphate 15 MMOL in Sodium Chloride 0.9% 100 ML IVPB SCH ×2 (08:30→22:00)
[2023-04-28] MEDS ORDERED: Potassium Chloride 20 MEQ in Premix Bag 1 BAG IVPB SCH (08:45)
[2023-04-28] MEDS ORDERED: VANCOMYCIN 1.25 GM/250 ML BAG 1.25 GM in Premix Bag 1 BAG IVPB SCH (09:00)
[2023-04-28] MEDS: Vancomycin 1.5 GRAM/300 ML BAG 1.5 GM in Premix Bag 1 BAG IVPB SCH (09:30)
[2023-04-28] MEDS: Polyethylene Glycol 3350 17 GM Packet PO SCH (09:31)
[2023-04-28] MEDS: Cholecalciferol 1,000 UNITS (25 MCG) TAB PO SCH (09:31)
[2023-04-28] MEDS: Calcium Carbonate 600 MG + Vit D TAB PO SCH ×2 (09:31→21:10)
[2023-04-28] MEDS: Sodium Bicarbonate Tab 325 MG TAB PER TUBE SCH ×3 (09:31→21:09)
[2023-04-28] MEDS ORDERED: Sodium Chloride 0.9% (PF) 10 ML VIAL FS PRN (12:00)
[2023-04-28] MEDS ORDERED: Metolazone 5 MG TAB PER TUBE SCH (13:30)
[2023-04-28] MEDS ORDERED: Spironolactone 25 MG TAB PER TUBE SCH (13:30)
[2023-04-28] MEDS: [UNRECOGNIZED DRUG - OTHER] IV SCH (14:13)
[2023-04-28] MEDS: TRACE ELEMENT IV SCH (14:13)
[2023-04-28] MEDS: SODIUM ACETATE IV SCH (14:13)
[2023-04-28] MEDS: MULTIVITAMINS IV SCH (14:13)
[2023-04-28 19:51] LABS: Albumin 2.9 g/dL (3.4-4.8); Anion Gap 30 mmol/L (10-20); BUN (Urea Nitrogen) 75 mg/dL (8.4-25.7); Calc. Creatinine Clearance 52 mL/min (70-130); Calcium 8.3 mg/dL (7.8-10.44); Carbon Dioxide 11 mmol/L (23-31); Chloride 105 mmol/L (98-107); Estimated GFR 42; Glucose 152 mg/dL (83-110); Phosphorus 1.9 mg/dL (2.3-4.7); Potassium 3.9 mmol/L (3.5-5.1); Sodium 142 mmol/L (136-145)
[2023-04-28] MEDS: HumaLOG 300 UNITS/3 ML VIAL SC PRN ×2 (20:03→23:16)
[2023-04-28] MEDS ORDERED: Pantoprazole 40 MG VIAL IVP SCH (21:00)
[2023-04-28] MEDS: Allopurinol 100 MG TAB PO SCH (21:10)
[2023-04-29] MEDS: Propofol 1,000 MG/100 ML VIAL IV PRN ×2 (01:46→08:35)
[2023-04-29] MEDS: Albumin 25% 25 GM/100 ML BOT IVPB SCH ×4 (03:20→21:00)
[2023-04-29] MEDS: Hydrocortisone Sod Succ/PF 100 mg/2 ml Vial IVP SCH ×3 (03:20→15:45)
[2023-04-29] MEDS: HumaLOG 300 UNITS/3 ML VIAL SC PRN ×2 (04:10→10:54)
[2023-04-29 05:20] LABS: Fibrinogen 278 mg/dL (253-463); Hemoglobin 8.3 g/dL (14.0-18.0); Mean Corpuscular Hemoglobin 31.6 pg (27.0-31.0); Mean Corpuscular Volume 98.5 fl (78.0-98.0); Mean Platelet Volume 11.9 fL (7.4-10.4); RBC Distribution Width 22.9 % (11.5-14.5); Red Blood Cell (RBC) Count 2.63 mill/uL (4.70-6.10); White Blood Cell (WBC) Count 16.4 10x3/uL (4.8-10.8)
[2023-04-29 05:21] LABS: PTT 34.9 sec (22.9-36.1)
[2023-04-29 05:25] LABS: INR-International Normal Ratio 2.5; Prothrombin Time 27.8 sec (12.0-14.7)
[2023-04-29 05:28] LABS: D-Dimer Test 8.97 *mcg/mL (0.27-0.43)
[2023-04-29 05:53] LABS: Platelet Count 49 10x3/uL (130-400)
[2023-04-29 06:10] LABS: ALT (SGPT) 124 U/L (8-55); AST (SGOT) 962 U/L (5-34); Albumin 2.9 g/dL (3.4-4.8); Alkaline Phosphatase 1313 U/L (40-110); Anion Gap 32 mmol/L (10-20); BUN (Urea Nitrogen) 81 mg/dL (8.4-25.7); Bilirubin, Total 5.7 mg/dL (0.2-1.2); Calc. Creatinine Clearance 43 mL/min (70-130); Calcium 8.4 mg/dL (7.8-10.44); Chloride 103 mmol/L (98-107); Estimated GFR 33; Globulin 2.5 g/dL (2.4-3.5); Glucose 154 mg/dL (83-110); Platelet Count 49 10x3/uL (130-400); Potassium 4.2 mmol/L (3.5-5.1); Protein, Total 5.4 g/dL (5.8-8.1); Sodium 139 mmol/L (136-145)
[2023-04-29 06:11] LABS: Delete Auto Diff?? YES; Manual Diff?? YES
[2023-04-29 06:44] LABS: Carbon Dioxide 8 mmol/L (23-31)
[2023-04-29 07:44] VITALS: BP 122/56
[2023-04-29 07:50] LABS: Base Excess (BEa) -23.2 mEq/L (-2.0 to +3.0); CO2 Tension 40.1 mmHg (35.0-45.0); Calcium, Ionized (arterial) 1.13 mmol/L (1.12-1.30); Carboxyhemoglobin (COHb) 0.3 gm% (0.0-3.0); Hematocrit-ABG 24 % (42.0-52.0); Hemoglobin (Hb) 8.2 g/dL (14.0-18.0); O2 Tension (PaO2), arterial 107.8 mmHg (> 70.0); Potassium - ABG Lab 4.58 mmol/L (3.70-5.30)
[2023-04-29 07:51] LABS: Anisocytosis SLIGHT = 6-15 cells (100X) (0-5/hpf); Band 14 % (5-11); Hypochromia SLIGHT = 6-15 cells (100X) (0-5/hpf); Lymphocytes 22 % (21-51); Metamyelocyte 2 % (0-0); Neutrophil 62 % (42-75); Nucleated RBC (Manual Ct) 19 % (0); Poikilocytosis SLIGHT = 6-15 cells (100X) (0-5/hpf)
[2023-04-29 07:52] LABS: Platelet Adequacy Comment Appears Decreased
[2023-04-29 07:58] LABS: Puncture Site RRA; pH, Arterial 6.917 (7.35-7.45)
[2023-04-29 07:59] LABS: ALV-art Gradient 127.275 mmHg (0-20)
[2023-04-29] MEDS ORDERED: Sodium Bicarbonate 150 MEQ in Dextrose 5% in Water 1,000 ML IV SCH (08:00)
[2023-04-29] MEDS ORDERED: predniSONE 50 MG TAB PO SCH (08:00)
[2023-04-29] MEDS ORDERED: Sodium Bicarb 50 MEQ/50 ML Abboject 8.4% SYRINGE IVP SCH (08:00)
[2023-04-29] MEDS ORDERED: Sodium Bicarb 50 MEQ/50 ML VIAL FS SCH ×2 (08:15→12:00)
[2023-04-29] MEDS ORDERED: Fentanyl CADD 100 ML ONE (08:43)
[2023-04-29] MEDS: Fentanyl CADD 100 ML IV SCH (08:44)
[2023-04-29 09:26] LABS: Phosphorus 2.9 mg/dL (2.3-4.7)
[2023-04-29 09:28] LABS: Uric Acid Less than 2.0 mg/dL (3.5-7.2)
[2023-04-29] MEDS: Polyethylene Glycol 3350 17 GM Packet PO SCH (09:57)
[2023-04-29] MEDS: Cholecalciferol 1,000 UNITS (25 MCG) TAB PO SCH (09:58)
[2023-04-29] MEDS: Calcium Carbonate 600 MG + Vit D TAB PO SCH (09:58)
[2023-04-29] MEDS: Vancomycin 1.5 GRAM/300 ML BAG 1.5 GM in Premix Bag 1 BAG IVPB SCH (09:59)
[2023-04-29] MEDS: Sodium Bicarbonate Tab 325 MG TAB PER TUBE SCH ×2 (10:08→15:45)
[2023-04-29] MEDS ORDERED: Sodium Bicarb 50 MEQ/50 ML VIAL ONE (12:04)
[2023-04-29] MEDS ORDERED: EPINEPHrine 4 MG in Dextrose 5% in Water 250 ML IV SCH (12:30)
[2023-04-29 13:00] LABS: Base Excess (BEa) -22.1 mEq/L (-2.0 to +3.0); CO2 Tension 27.3 mmHg (35.0-45.0); Calcium, Ionized (arterial) 1.05 mmol/L (1.12-1.30); Carboxyhemoglobin (COHb) 0.2 gm% (0.0-3.0); Hematocrit-ABG 19 % (42.0-52.0); Hemoglobin (Hb) 6.4 g/dL (14.0-18.0); O2 Tension (PaO2), arterial 98.5 mmHg (> 70.0); Potassium - ABG Lab 5.34 mmol/L (3.70-5.30)
[2023-04-29 13:01] LABS: ALV-art Gradient 152.575 mmHg (0-20); Actual Bicarbonate (HCO3a) 6.9 mEq/L (22-28); Puncture Site RRA; pH, Arterial 7.021 (7.35-7.45)
[2023-04-29] MEDS: [UNRECOGNIZED DRUG - OTHER] IV SCH (15:15)
[2023-04-29] MEDS: SODIUM ACETATE IV SCH (15:15)
[2023-04-29] MEDS: MULTIVITAMINS IV SCH (15:15)
[2023-04-29] MEDS: TRACE ELEMENT IV SCH (15:15)
[2023-04-29 20:54] VITALS: TEMP 98.1
[2023-05-04 10:39] LABS: Actual Bicarbonate (HCO3a) 12.6 mEq/L (22-28)
== END 2023-04-29 16:01 | disposition expired | DRG 853 ==
LOC: ERS 14:48 → EDSEX 14:48 → IMCU/EMU 18:40 → CCU 04-23 18:25
PROVIDERS: ADMIT Student in an Organized Health Care Education/Training Program; ATTEND Hospitalist
PROC: 3E03329 Introduction of Other Anti-infective into Peripheral Vein, Percutaneous Approach (ICD-10-PCS; 2023-04-21)
PROC: 07BB4ZX Excision of Mesenteric Lymphatic, Percutaneous Endoscopic Approach, Diagnostic (ICD-10-PCS; principal; 2023-04-22)
PROC: 0FT44ZZ Resection of Gallbladder, Percutaneous Endoscopic Approach (ICD-10-PCS; 2023-04-22)
PROC: 30233J1 Transfusion of Nonautologous Serum Albumin into Peripheral Vein, Percutaneous Approach (ICD-10-PCS; 2023-04-22)
PROC: 0T788DZ Dilation of Bilateral Ureters with Intraluminal Device, Via Natural or Artificial Opening Endoscopic (ICD-10-PCS; 2023-04-23)
PROC: 30233N1 Transfusion of Nonautologous Red Blood Cells into Peripheral Vein, Percutaneous Approach (ICD-10-PCS; 2023-04-23)
PROC: 05HY33Z Insertion of Infusion Device into Upper Vein, Percutaneous Approach (ICD-10-PCS; 2023-04-26)
PROC: 5A1945Z Respiratory Ventilation, 24-96 Consecutive Hours (ICD-10-PCS; 2023-04-26)
PROC: 0BH17EZ Insertion of Endotracheal Airway into Trachea, Via Natural or Artificial Opening (ICD-10-PCS; 2023-04-26)
PROC: 4A033R1 Measurement of Arterial Saturation, Peripheral, Percutaneous Approach (ICD-10-PCS; 2023-04-26)
PROC: 3E0336Z Introduction of Nutritional Substance into Peripheral Vein, Percutaneous Approach (ICD-10-PCS; 2023-04-27)
PROC: 6A550Z2 Pheresis of Platelets, Single (ICD-10-PCS; 2023-04-28)
DX: A41.2 Sepsis due to unspecified staphylococcus (principal); E88.3 Tumor lysis syndrome; G93.41 Metabolic encephalopathy; J96.01 Acute respiratory failure with hypoxia; N17.9 Acute kidney failure, unspecified; N13.30 Unspecified hydronephrosis; E87.1 Hypo-osmolality and hyponatremia; E87.20 Acidosis, unspecified; K80.00 Calculus of gallbladder with acute cholecystitis without obstruction; C85.10 Unspecified B-cell lymphoma, unspecified site; E87.0 Hyperosmolality and hypernatremia; K56.7 Ileus, unspecified; I46.9 Cardiac arrest, cause unspecified; Z51.5 Encounter for palliative care; Z96.653 Presence of artificial knee joint, bilateral; F31.9 Bipolar disorder, unspecified; E83.51 Hypocalcemia; E87.5 Hyperkalemia; E11.649 Type 2 diabetes mellitus with hypoglycemia without coma; D64.9 Anemia, unspecified; D69.6 Thrombocytopenia, unspecified; R60.9 Edema, unspecified; R59.1 Generalized enlarged lymph nodes; R16.0 Hepatomegaly, not elsewhere classified; E88.09 Other disorders of plasma-protein metabolism, not elsewhere classified; N18.9 Chronic kidney disease, unspecified; F09 Unspecified mental disorder due to known physiological condition; N13.9 Obstructive and reflux uropathy, unspecified; R31.9 Hematuria, unspecified; E83.39 Other disorders of phosphorus metabolism; I12.9 Hypertensive chronic kidney disease with stage 1 through stage 4 chronic kidney disease, or unspecified chronic kidney disease; E11.22 Type 2 diabetes mellitus with diabetic chronic kidney disease; E87.6 Hypokalemia; Z98.890 Other specified postprocedural states; Z91.81 History of falling
CPT/HCPCS: 36415; 36416; 36430; 36600; 51701; 70450; 71045; 71250; 74176; 74177; 76705; 76770; 78226; 80048; 80053; 80074; 80076; 80143; 80179; 80306; 80307; 81001; 82140; 82248; 82550; 82652; 82728; 82805; 82977; 83540; 83550; 83605; 83615; 83690; 83735; 83880; 84100; 84145; 84484; 84550; 85025; 85046; 85049; 85060; 85300; 85362; 85379; 85384; 85610; 85730; 86140; 86480; 86850; 86900; 86901; 87040; 87077; 87086; 87149; 87186; 88184; 88304; 88307; 88341; 88342; 88360; 88365; 93005; 93010; 93306; 94002; 94003; 96365; A9537; C1713; C1889; C2617; C9113; J0171; J0612; J0613; J0696; J1100; J1200; J1453; J1611; J1720; J1815; J1940; J2060; J2270; J2405; J2469; J2543; J2704; J2783; J3010; J3370; J3475; J3480; J3490; J7030; J7050; J7070; J7999; J9070; P9016; P9035; P9040; P9045; P9047; Q5115; Q9967